=== PATIENT | female | born 1980 | race Caucasian/White ===

== ENCOUNTER 2018-01-19 18:04 | Emergency (ER) | payer BC ==
[~2018-01-19] VITALS: Ht 175.3 cm; Wt 92.0 kg
[2018-01-19 19:06] LABS: APPEARANCE CLEAR ((CLEAR)); BILIRUBIN NEGATIVE; BLOOD NEGATIVE; COLOR YELLOW ((YELLOW)); GLUCOSE (STRIP) >=500; KETONES 80; LEUKOCYTES NEGATIVE; NITRITE NEGATIVE; PROTEIN (STRIP) NEGATIVE; SPECIFIC GRAVITY 1.041 (1.000-1.030); UCUL ADDED? NO; UROBILINOGEN 0.2 MG/DL (0.2-1.0)
[2018-01-19 19:13] LABS: HEMATOCRIT 43.6 % (36.0-46.0); MCH 31.9 PG (29.0-34.0); MCHC 36.7 G/DL (30.0-36.0); PLATELET COUNT 293 K/uL (156-360); RBC DIS.WIDTH-CV 12.7 % (11.8-14.6); RBC DIS.WIDTH-SD 39.8 % (39-53); RED BLOOD COUNT 5.01 M/uL (3.80-5.20); WHITE BLOOD COUNT 7.3 K/uL (4.1-10.2)
[2018-01-19 19:22] LABS: ALBUMIN 4.3 g/dL (3.2-4.8)
[2018-01-19 19:23] LABS: CHLORIDE 104 mEq/L (99-109); POTASSIUM 3.5 mEq/L (3.7-5.4); SODIUM 137 mEq/L (136-147)
[2018-01-19 19:25] LABS: GLUCOSE 357 mg/dL (70-99); TOTAL PROTEIN 7.8 g/dL (6.4-8.3)
[2018-01-19 19:27] LABS: TOTAL BILIRUBIN 0.5 mg/dL (0.0-1.0)
[2018-01-19 19:28] LABS: ALKALINE PHOSPHATASE 90 IU/L (3-129)
[2018-01-19 19:29] LABS: CREATININE 0.8 mg/dL (0.6-1.3); GFR ESTIMATE (CALCULATED) > 59 mL/min/
[2018-01-19 19:30] LABS: AST (GOT) 9 IU/L (2-34); UREA NITROGEN (BUN) 5 mg/dL (9-23)
[2018-01-19 19:32] LABS: ALT (GPT) 10 IU/L (3-49)
[2018-01-19 19:37] LABS: QUANTITATIVE HCG < 4.0 MIU/ML
[2018-01-19 20:48] LABS: CARBON DIOXIDE (BICARBONATE) 22.9 MEQ/L (20-31)
[2018-01-19 23:09] LABS: CHLORIDE 109 mEq/L (99-109); POTASSIUM 3.4 mEq/L (3.7-5.4); SODIUM 137 mEq/L (136-147)
[2018-01-19 23:11] LABS: GLUCOSE 239 mg/dL (70-99)
[2018-01-19 23:14] LABS: CREATININE 0.6 mg/dL (0.6-1.3); GFR ESTIMATE (CALCULATED) > 59 mL/min/
[2018-01-19 23:15] LABS: UREA NITROGEN (BUN) 4 mg/dL (9-23)
[2018-01-19] MEDS ORDERED: PERCOCET 5/31 TABLET PO (23:25)
[2018-01-19] MEDS ORDERED: CLEOCIN150 MG PO (23:25)
[2018-01-20 00:11] VITALS: BP 131/86
== END 2018-01-20 00:15 | disposition home or self-care (01) ==
LOC: EME 18:04
PROVIDERS: Physician Assistant Medical
DX: N76.4 Abscess of vulva (principal); E11.9 Type 2 diabetes mellitus without complications; Z72.0 Tobacco use
CPT/HCPCS: 74177; 80048 91; 80053; 81003; 82010; 82803; 82948; 83605; 84702; 85027; 87040; 99281; 99285; J2270; J7030